=== PATIENT | male | born 1940 | race Caucasian/White ===

== ENCOUNTER → 2021-10-25 13:42 | Outpatient (REF) | payer MEDICARE, SELFPAY ==
--- NOTE | 2021-10-25 13:48 | CA_ITS ---
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 The visually estimated ejection fraction is between 55-60%. - The basal inferior and mid inferior segments are hypokinetic. The inferoseptal wall is akinetic. 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 Normal function. Findings Left Ventricle Normal left ventricular cavity size. There is mildly increased left ventricular wall thickness. The left ventricular systolic function is normal. The visually estimated ejection fraction is between 55-60%. Evidence suggests grade I (mild) diastolic dysfunction. Wall Motion Rest Echo Findings The basal inferior and mid inferior segments are hypokinetic. The inferoseptal wall is akinetic. Right Ventricle Normal right ventricular cavity size and systolic function. Atria The left atrium is normal in size. The right atrium is normal in size. Aortic Valve The mean gradient is 17 mmHg. There is no aortic valve regurgitation. 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 Normal function. Mitral Valve There is mild anterior mitral leaflet thickening. There is mild mitral annular calcification. There is mild mitral valve regurgitation. There is no mitral valve stenosis. Pulmonic Valve The pulmonic valve is likely normal. Tricuspid Valve There is trace tricuspid valve regurgitation. The pulmonary artery systolic pressure is normal. Great Vessels The asc aorta is normal in size. Venous The inferior vena cava is normal in size and collapses greater than 50% with inspiration. Pericardium/Pleural There is no evidence of pericardial effusion. Prior Study Comparison Changes noted compared to prior study dated: 05/14/2020. Wall motion abnormality not previously reported. Measurements 2D Linear Measurements IVSd: 1.27 0.6-0.9/0.6-1.0 cm LVIDd: 5.01 3.9-5.3/4.2-5.9 cm LVIDd Index: 2.04 2.4-3.2/2.2-3.1 cm/m2 LVIDs: 3.19 2.0-3.6 cm LVPWd: 1.04 0.7-1.1 cm LA Diam: 3.80 2.7-3.8/3.0-4.0 cm LAIDs Index: 1.54 1.5-2.3 cm/m2 LV Mass: 277.13 67-162/88-224 g LV Mass Index: 112.65 43-95/49-115 g/m2 LVOT Diam: 1.90 3.0+(-)1.3 cm Mitral Valve MV Pk E: 1.10 MV PK A: 1.27 MV Decel Time: 152.00 E/A: 0.90 E'Lateral: 5.66 E'Medial: 5.77 E/E' Med: 19.10 E/E' Lat: 19.40 PHT: 45.00 MVA PHT: 4.89 Decel [place]: 7.21 Aortic Valve AoV Pk Maxx: 2.75 AoV Mn Maxx: 1.95 AoV VTI: 0.60 AoV Pk Grad: 30.00 Aov Mn Grad: 17.00 YOHANA Cont.VTI: 1.59 LVOT LVOT Pk Maxx: 1.55 LVOT Mn Maxx: 1.11 LVOT VTI: 0.33 LVOT Pk Grad: 10.00 LVOT Mn Grad: 6.00 LVOT Diam: 1.90 LVOT Area: 2.84 Diastolic Function MV Pk E: 1.10 MV Pk A: 1.27 E/A: 0.90 E'Medial: 5.77 E/E' Med: 19.10 E' Laterial: 5.66 E/E' Lat: 19.40 Right Ventricle TAPSE (mm): 22.10 TVS' Maxx: 12.20 Tricuspid Valve TR Pk Maxx: 2.20 TR Pk Grad: 19.00 RA Press: 3.00 RVSP: 22.00 Great Vessels Aorta Ao Asc: 3.70 2.1-3.4 cm Updated in Other Vendor System with Status of Final Heriberto Munoz MD electronically signed on 10/26/2021 11:14:13 AM with status of Final
== END ==
LOC: HO.CARD 13:42
PROVIDERS: PCP Family Medicine; Visit Provider Family Medicine
DX: I35.0 Nonrheumatic aortic (valve) stenosis (principal)
CPT/HCPCS: 93306